=== PATIENT | male | born 1955 ===

== ENCOUNTER 2017-08-17 09:16 | Day surgery (SDC) | payer BC ==
[~2017-08-17 09:16] MED LIST: ASPI81TA21 PO; FENO1TAB76 PO; MAXZ25 PO; METO25 PO; NITR.4 SL; PLAV75TA PO; SIMV40TA PO
[2017-08-17 10:08] VITALS: BP 121/75; PULSE 51; RESP 16; TEMP 98; O2SAT 97
[2017-08-17 10:35] VITALS: BP 165/85; PULSE 51; RESP 20; TEMP 98.2; O2SAT 97
[2017-08-17] MEDS ORDERED: LIDOCAINE HCL 1% PF 30 ML VIAL ONE (10:43)
[2017-08-17] MEDS ORDERED: LIDOCAINE HCL 1% PF 10 ML VIAL ONE (10:43)
--- NOTE | 2017-08-17 10:49 | PD.RAD ---
Post US Procedure Prog Note Pre Procedure Diagnosis: (1) Right thyroid nodule Post Procedure Diagnosis: (1) Right thyroid nodule Procedure Date: Aug 17, 2017 Supervising Radiologist: Lv Cleaning Estimated blood loss: none Anesthesia: Local Plan of Activity Patient to Unit: ROPU Patient Condition: Good See PACS Report for procedural detail/treatment Biopsy Imaging Guidance: Ultrasound Side: Right Biopsy Procedure: Thyroid Site: dominant solid nodule in right mid to lower pole of the thyroid. Specimen: Fine Needle Aspirate Additional Detail: 4 FNAs obtained with 22 and 25 G needles. Plan to ROPU then discharge. Lv Cleaning MD Aug 17, 2017 10:49
[2017-08-17 10:50] VITALS: BP 157/87; PULSE 50; RESP 18; O2SAT 97
[2017-08-17 11:35] VITALS: BP 158/91; PULSE 52; RESP 18; O2SAT 98
[2017-08-17 11:50] VITALS: BP 154/90; PULSE 54; RESP 16; O2SAT 98
--- NOTE | 2017-08-17 13:09 | RADRPT ---
EXAM DATE/TIME: 08/17/2017 09:39 [facility] COMPARISON: No previous studies available for comparison. INDICATIONS : Right thyroid nodule. MEDICAL HISTORY : HTN. GERD. HI. Sleep apnea. BPH. SURGICAL HISTORY : None. ENCOUNTER: Initial ACUITY: 1 day PAIN SCORE: 0/10 LOCATION: Right neck ORGAN: Right thyroid lobe SPECIMENS: 8 fine needle aspirate(s) submitted for pathologic evaluation. DEVICE: 25 gauge needle Post procedure scanning reveals no hematoma or other complication. The possibility does exist that the tissue obtained will be non-diagnostic. If the sample is non-willard gnostic a repeat biopsy or surgical biopsy may need to be performed. TECHNIQUE: 1. Ultrasound guidance for needle biopsy. 2. Needle biopsy. The risks, benefits and alternatives to the procedure were explained and verbal and written consent w as obtained. The site was prepped in sterile fashion. Full sterile technique was used, including ca p, mask, sterile gloves and gown and a large sterile sheet. Hand hygiene and 2% chlorhexidine and/or betadine/alcohol prep was utilized per protocol for cutaneous antisepsis. The skin and subcutaneous tissues were infiltrated with local anesthetic solution. Sterile gel and sterile probe cover were u tilized for ultrasound guidance. With the patient on the ultrasound table, images were obtained. There is a dominant nodule in the ri ght lobe of the thyroid gland measuring approximately 3.6 x 5.0 x 2.8 cm. The nodule contains at leas t a few calcifications. A needle was advanced into the identified target and the number of specimens as above obtained and adam bmitted for pathologic evaluation. The patient tolerated the procedure well and left the ultrasound suite in stable condition. CONCLUSION: Uncomplicated ultrasound guided needle biopsy of the right lobe thyroid nodule with a total of 8 fine needle aspiration attempts performed. Lv Cleaning MD on August 17, 2017 at 13:05 Board Certified Radiologist. This report was verified electronically.
== END 2017-08-17 12:00 | disposition home or self-care (01) ==
LOC: HRIP 09:16 → HRAD 09:16
PROVIDERS: ATTEND Family Medicine
DX: E04.1 Nontoxic single thyroid nodule (principal); I10 Essential (primary) hypertension; K21.9 Gastro-esophageal reflux disease without esophagitis; N40.0 Benign prostatic hyperplasia without lower urinary tract symptoms; G47.30 Sleep apnea, unspecified
CPT/HCPCS: 10022; 76942; 88172; 88173